=== PATIENT | female | born 1955 ===

== ENCOUNTER 2023-10-29 04:37 | Day surgery (SDC) | payer OTHER ==
[2023-10-25 18:08] VITALS: BMI 31.6
[2023-10-29 11:36] VITALS: RESP 18
[2023-10-29] MEDS ORDERED: ONDANSETRON 4 MG/2 ML VIAL IVPUSH PRN ×2 (15:22→17:12)
[2023-10-29] MEDS ORDERED: oxyCODONE HCL 5 MG TABLET PO PRN (15:22)
[2023-10-29] MEDS ORDERED: LACTATED RINGERS SOLUTION 1,000 ML IV SCH ×2 (15:30→17:15)
[2023-10-29] MEDS ORDERED: MIDAZOLAM HCL 2 MG/2 ML SINGLE DOSE VIAL ONE (15:47)
[2023-10-29] MEDS ORDERED: FENTANYL CITRATE/PF 50 MCG/ML VIAL ONE ×3 (15:47→16:17)
[2023-10-29] MEDS ORDERED: ONDANSETRON 4 MG/2 ML VIAL ONE ×2 (15:48→16:19)
[2023-10-29] MEDS ORDERED: DEXAMETHASONE SOD PHOSPHATE 4 MG/1 ML VIAL ONE (15:49)
[2023-10-29] MEDS ORDERED: KETOROLAC TROMETHAMINE 30 MG/1 ML VIAL ONE (15:49)
[2023-10-29] MEDS ORDERED: ceFAZolin SODIUM 1 GM VIAL ONE (16:10)
[2023-10-29] MEDS: ceFAZolin SODIUM 1 GM VIAL IVPB ONE (16:10)
[2023-10-29] MEDS ORDERED: PROPOFOL 20 ML ONE (16:16)
[2023-10-29 19:31] VITALS: BP 125/87; PULSE 88; TEMP 98.5
== END 2023-10-29 19:00 | disposition home or self-care (01) ==
LOC: JASU-SURG 04:37
PROVIDERS: ATTEND Obstetrics & Gynecology
PROC: 0UB98ZZ Excision of Uterus, Via Natural or Artificial Opening Endoscopic (ICD-10-PCS; principal; 2023-10-29 14:00)
DX: C55 Malignant neoplasm of uterus, part unspecified (principal); N95.0 Postmenopausal bleeding; D25.9 Leiomyoma of uterus, unspecified; N84.0 Polyp of corpus uteri
CPT/HCPCS: 86850; 86900; 86901; 88305-TC; 94760